=== PATIENT | female | born 1980 | race Hispanic/Latino ===

== ENCOUNTER 2019-04-16 06:57 | Inpatient (IN) | payer SELFPAY ==
[~2019-04-16] VITALS: Ht 165.1 cm; Wt 98.9 kg
[2019-04-16] MEDS ORDERED: ONDANSETRON HCL 4 MG/2 ML VIAL IV PRN (11:00)
[2019-04-16] MEDS ORDERED: ACETAMINOPHEN 325 MG TAB PO PRN (11:00)
[2019-04-16] MEDS ORDERED: HYDRALAZINE HCL 20 MG/ML VIAL IV PRN (11:00)
[2019-04-16] MEDS ORDERED: ZOSYN 3.375GM+NS 50ML 50 ML IV ONE (11:21)
[2019-04-16] MEDS ORDERED: FAMOTIDINE/PF 20 MG/2 ML VIAL IV ONE (11:22)
[2019-04-16] MEDS ORDERED: SODIUM CHLORIDE 0.9% 1000ML 1,000 ML IV ONE (11:22)
[2019-04-16] MEDS: ZOSYN 3.375GM+NS 50ML 50 ML IV SCH ×2 (13:00→19:43)
[2019-04-16 14:00] VITALS: BP 124/73
--- NOTE | 2019-04-16 14:00 | NUR ---
Received patient from ER. Patient alert and oriented x3. Ambulatory. Patient states she came to ER for abdominal pain but pain subsided when she got to ER. Patient with no complaints of pain. Ambulatory with min assist. IV patent to right arm. Bed placed to lowest position. Oriented to room, Call light placed within reach. No question or concerns voiced by patient.
[2019-04-16 16:00] VITALS: BP 100/53
[2019-04-16] MEDS: FAMOTIDINE/PF 20 MG/2 ML VIAL IV SCH (19:43)
[2019-04-16 20:00] VITALS: BP 102/50
[2019-04-17] VITALS: BP 102/70
[2019-04-17] MEDS: SODIUM CHLORIDE 0.9% 1000ML 1,000 ML IV SCH ×3 (02:29→18:59)
[2019-04-17 04:00] VITALS: BP 100/54
[2019-04-17] MEDS: ZOSYN 3.375GM+NS 50ML 50 ML IV SCH ×3 (04:57→22:08)
[2019-04-17 08:00] VITALS: BP 114/66
--- NOTE | 2019-04-17 09:28 | NUR ---
FELIZ Culp met with pt who states she lives with her 6 kids, ages 17,16,12,7,3 and 9 months. Kids are with pt's mother and mother in law at this time. Ludwig Mattson is fiance and Er contact [phone]. pt works, drives, is independent of [employer], no DME or HH. Pt denies dc needs and plan is home at [place]. Addendum: 04/17/19 at 0931 by VIOLET HARRIS Amended: Links added.
[2019-04-17] MEDS: FAMOTIDINE/PF 20 MG/2 ML VIAL IV SCH ×2 (09:42→22:08)
[2019-04-17] MEDS: ENOXAPARIN SODIUM 40 MG/0.4 ML SYRINGE SQ SCH (09:44)
--- NOTE | 2019-04-17 10:00 | NUR ---
DR. REYNA AWARE OF CASE STATES WILL SEE PT TONIGHT.
[2019-04-17 11:00] VITALS: BP 98/69
[2019-04-17 16:00] VITALS: BP 106/68
[2019-04-17 19:00] VITALS: BP 113/63
[2019-04-18] VITALS (21 sets, daily range): BP systolic 104–141; BP diastolic 52–81
[2019-04-18] MEDS: SODIUM CHLORIDE 0.9% 1000ML 1,000 ML IV SCH ×3 (01:08→20:34)
[2019-04-18] MEDS: ZOSYN 3.375GM+NS 50ML 50 ML IV SCH ×3 (04:19→20:34)
[2019-04-18] MEDS: ENOXAPARIN SODIUM 40 MG/0.4 ML SYRINGE SQ SCH (09:00)
[2019-04-18] MEDS: FAMOTIDINE/PF 20 MG/2 ML VIAL IV SCH ×2 (11:10→20:34)
[2019-04-18] MEDS ORDERED: LACTATED RINGERS 1000ML 1,000 ML IV ONE (11:55)
[2019-04-18] MEDS ORDERED: SUCCINYLCHOLINE 200MG/10ML SYR ONE (12:39)
[2019-04-18] MEDS ORDERED: MIDAZOLAM HCL 1 MG/ML 2ML VIAL ONE (12:39)
[2019-04-18] MEDS ORDERED: DEXAMETHASONE SOD PHOSPHATE 10MG/ML 1ML VIAL ONE (12:39)
[2019-04-18] MEDS ORDERED: GLYCOPYRROLATE 1 MG/5 ML SYRINGE ONE (12:39)
[2019-04-18] MEDS ORDERED: LIDOCAINE PF 2% 5ML ABBOJECT ONE (12:39)
[2019-04-18] MEDS ORDERED: ONDANSETRON HCL 4 MG/2 ML VIAL ONE (12:39)
[2019-04-18] MEDS ORDERED: PROPOFOL 10 MG/ML 20ML VIAL IV ONE (12:39)
[2019-04-18] MEDS ORDERED: ROCURONIUM 10MG/1ML SYR 10 MG/ML ML ONE (12:40)
[2019-04-18] MEDS ORDERED: FENTANYL CITRATE PF 50 MCG/1 ML 2ML VIAL ONE (12:40)
[2019-04-18] MEDS ORDERED: NEOSTIGMINE 5MG/5ML SYR IV ONE (12:40)
[2019-04-18] MEDS ORDERED: BUPIVACAINE/PF 0.25% 30ML VIAL IJ ONE (12:59)
[2019-04-18] MEDS ORDERED: LIDOCAINE 1%-EPI 1:100,000 20 ML VIAL IJ ONE (13:00)
[2019-04-18] MEDS: MEPERIDINE-PF 25 MG/ML SYG IV PRN ×2 (13:59→20:42)
[2019-04-18] MEDS ORDERED: OXYCODONE/ACETAMIN 5/325MG TAB PO PRN (16:30)
[2019-04-19] VITALS: BP 120/72
[2019-04-19] MEDS: SODIUM CHLORIDE 0.9% 1000ML 1,000 ML IV SCH (02:59)
[2019-04-19] MEDS: MEPERIDINE-PF 25 MG/ML SYG IV PRN (03:25)
[2019-04-19 04:00] VITALS: BP 93/44
[2019-04-19] MEDS: ZOSYN 3.375GM+NS 50ML 50 ML IV SCH (04:37)
[2019-04-19] MEDS ORDERED: TYL3 PO (07:31)
[2019-04-19 08:00] VITALS: BP 110/70
[2019-04-19] MEDS: FAMOTIDINE/PF 20 MG/2 ML VIAL IV SCH (08:59)
[2019-04-19] MEDS: ENOXAPARIN SODIUM 40 MG/0.4 ML SYRINGE SQ SCH (09:00)
== END 2019-04-19 13:30 | disposition home or self-care (01) | DRG 419 ==
LOC: EDH 06:57 → EDHIP 06:58 → 3BH 14:11
PROVIDERS: ADMIT Internal Medicine; ATTEND Internal Medicine
PROC: 0FT44ZZ Resection of Gallbladder, Percutaneous Endoscopic Approach (ICD-10-PCS; principal; 2019-04-18 12:45)
DX: K80.00 Calculus of gallbladder with acute cholecystitis without obstruction (principal); Z80.1 Family history of malignant neoplasm of trachea, bronchus and lung; Z98.51 Tubal ligation status
CPT/HCPCS: 36415; 74181; 80048; 80053; 82140; 82150; 83036; 83690; 83735; 84100; 85025; 85610; 85730; 88304; 96365; 96366; 96374; G0378; J0330; J1100; J1650; J2001; J2175; J2250; J2405; J2543; J2704; J2710; J3010; J3490; J7030; J7120